=== PATIENT | female | born 1995 | race Caucasian/White ===

== ENCOUNTER 2018-11-21 15:35 | Emergency (ER) | payer OTHER ==
[~2018-11-21] VITALS: Ht 160 cm; Wt 68.0 kg
[~2018-11-21 15:35] MED LIST: DOXYCYCLINE 10100 MG PO; MACROBID 100 M100 M1 PO; METHYLERGONOVI0.2 MG PO; PYRIDIUM100 MG PO; TRINATE TABLET1 TAB PO; ZOFRAN ODT4 MG PO
[2018-11-21] MEDS ORDERED: IBUPROFEN 600600 M1 PO (16:31)
[2018-11-21 17:32] VITALS: BP 128/70
== END 2018-11-21 17:33 | disposition home or self-care (01) ==
LOC: ER 15:35
DX: M79.672 Pain in left foot (principal); F17.200 Nicotine dependence, unspecified, uncomplicated

== ENCOUNTER 2018-12-22 16:02 | Emergency (ER) | payer OTHER ==
[~2018-12-22] VITALS: Ht 160 cm; Wt 74.8 kg
[~2018-12-22 16:02] MED LIST changes: +IBUPROFEN 600600 M1 PO
[2018-12-22 18:02] VITALS: BP 123/81
== END 2018-12-22 18:03 | disposition left against medical advice (07) ==
LOC: ER 16:02
DX: M79.605 Pain in left leg (principal); V47.5XXA Car driver injured in collision with fixed or stationary object in traffic accident, initial encounter; Y93.I9 Activity, other involving external motion; Y92.410 Unspecified street and highway as the place of occurrence of the external cause; Y99.8 Other external cause status

== ENCOUNTER 2021-04-29 02:48 | Emergency (ER) | payer OTHER ==
[~2021-04-29] VITALS: Ht 160 cm; Wt 83.0 kg
[2021-04-29 05:02] LABS: HEMATOCRIT 41.2 % (37.0-47.0); HEMOGLOBIN 14.1 gm/dL (12.0-15.0); MCHC 34.3 g/dL (28.0-37.0); MCV 93.4 fL (80.0-100.0); RBC 4.41 mil/uL (4.20-5.00); RDW 12.8 % (10.5-14.5); WBC 19.1 thou/uL (4.0-11.0)
[2021-04-29 05:19] LABS: CALCIUM 9.1 mg/dL (8.5-10.1); CREATININE 0.8 mg/dL (0.6-1.0); POTASSIUM 3.5 mmol/L (3.5-5.1)
[2021-04-29 05:25] LABS: ALBUMIN 3.8 g/dL (3.4-5.0); TOTAL BILIRUBIN 0.5 mg/dL (0.2-1.0); TOTAL PROTEIN 7.7 g/dL (6.4-8.2)
[2021-04-29] MEDS ORDERED: NAPROSYN500 M1 PO (08:28)
[2021-04-29] MEDS ORDERED: HYDROCORTISON-A10 ML OTIC (08:28)
[2021-04-29] MEDS ORDERED: AUGMENTIN 875-1 EACH PO (08:28)
[2021-04-29 08:38] VITALS: BP 121/77
== END 2021-04-29 08:40 | disposition home or self-care (01) ==
LOC: ER 02:48
PROVIDERS: Emergency Medicine
DX: H60.91 Unspecified otitis externa, right ear (principal)

== ENCOUNTER 2021-05-03 17:12 | Emergency (ER) | payer OTHER ==
[~2021-05-03] VITALS: Ht 160 cm; Wt 83.9 kg
[~2021-05-03 17:12] MED LIST changes: +AUGMENTIN 875-1 EACH PO; +HYDROCORTISON-A10 ML OTIC; +NAPROSYN500 M1 PO
[2021-05-03] MEDS ORDERED: NOHOMEMEDICATIONS (17:18)
[2021-05-03] MEDS ORDERED: IBU600 MG PO (17:46)
[2021-05-03] MEDS ORDERED: AUGMENTIN 875-1 EACH PO (17:46)
[2021-05-03 19:33] VITALS: BP 150/68
== END 2021-05-03 19:48 | disposition home or self-care (01) ==
LOC: ER 17:12
DX: S71.152A Open bite, left thigh, initial encounter (principal); F17.210 Nicotine dependence, cigarettes, uncomplicated; W54.0XXA Bitten by dog, initial encounter; Y93.89 Activity, other specified; Y92.89 Other specified places as the place of occurrence of the external cause; Y99.8 Other external cause status